=== PATIENT | female | born 1945 | race Caucasian/White ===

== ENCOUNTER → 2019-01-25 | Outpatient (CLI) ==
[2019-01-25 13:54] LABS: ABSOLUTE RETIC # 41 10e9/L (24-90); RETICULOCYTE % 0.87 % (0.50-2.40)
[2019-01-25 14:51] LABS: BASOPHILS % (MANUAL) 1 %; EOSINOPHILS % (MANUAL) 1 %; LYMPHOCYTES % (MANUAL) 32 %; MONOCYTES % (MANUAL) 6 %; NEUTROPHILS % (MANUAL) 54 %; RBC MORPH NORMAL; REACTIVE LYMPHOCYTES 6 %
== END ==
LOC: LABNPT 13:45
PROVIDERS: ATTEND Family Medicine
DX: Z01.89 Encounter for other specified special examinations (principal)
CPT/HCPCS: 85007; 85045

== ENCOUNTER → 2020-02-12 | Outpatient (CLI) | payer MEDICARE ==
--- NOTE | 2020-02-12 09:43 | Diagnostic Imaging Report ---
CT Lung Screening INDICATION:40 pack year smoking history. Current smoker. TECHNIQUE: Noncontrast, low-dose CT imaging performed according to the lung cancer screening protocol. Auto Exposure Controls were utilize during the CT exam to meet ALARA standards for radiation dose reduction. COMPARISON:None. FINDINGS:Calcified granuloma in the right lung base. No suspicious pulmonary nodule or mass. No endobronchial lesions. No pleural effusion or pneumothorax. Prominent mediastinal lymph nodes remain subcentimeter in short axis dimension. Normal heart size. No pericardial effusion. Mild atherosclerotic calcifications in the coronary arteries. The visualized upper abdominal contents are unremarkable. No acute osseous findings. IMPRESSION: 1. No suspicious pulmonary nodule or mass. Recommend follow-up with low-dose screening chest CT in 12 months. 2. Evidence prior granulomatous infection. 3. Mild atherosclerotic ossifications in the coronary arteries. LUNG-RADS CATEGORY:1. MODIFIER:None. Dictated by: Dictated on workstation # [id number]
== END ==
LOC: RAD 09:15
PROVIDERS: ATTEND Family Medicine
DX: I25.10 Atherosclerotic heart disease of native coronary artery without angina pectoris (principal); F17.210 Nicotine dependence, cigarettes, uncomplicated

== ENCOUNTER → 2021-05-04 | Outpatient (CLI) | payer MEDICARE ==
--- NOTE | 2021-05-04 15:42 | Diagnostic Imaging Report ---
EXAMINATION: CT CHEST SCREENING WO. TECHNIQUE: Low-dose unenhanced CT of the chest was performed according to the screening protocol. Coronal MIP and sagittal MPR reformats are created. Automatic exposure controls were utilized to keep dose as low as reasonably achievable. INDICATION: 75 pack year history of smoking. Current smoker. COMPARISON: 02/12/2020. FINDINGS: Pulmonary findings: No nodule or debris within the trachea. No suspicious pulmonary nodule has developed. Scattered right lower lobe calcified pulmonary nodules are unchanged and compatible with old granulomatous infection. Extrapulmonary findings: No axillary or mediastinal lymphadenopathy. Heart is normal in size without pericardial effusion. No pleural effusion. Normal caliber thoracic aorta. Limited assessment of the upper abdomen is unremarkable. No concerning focal osseous lesions. IMPRESSION: No change to indicate clinically active lung cancer. Lung-RADS category: 1 - Negative Recommendations: Continued annual screening with low-dose CT in 12 months. Dictated by: Dictated on workstation # [id number]
== END ==
LOC: RAD 12:45
PROVIDERS: ATTEND Family Medicine
DX: Z12.2 Encounter for screening for malignant neoplasm of respiratory organs (principal); F17.210 Nicotine dependence, cigarettes, uncomplicated
CPT/HCPCS: 71271

== ENCOUNTER → 2022-05-05 | Outpatient (CLI) | payer MEDICARE ==
--- NOTE | 2022-05-05 15:24 | Diagnostic Imaging Report ---
EXAMINATION: CT chest without contrast (lung screening). TECHNIQUE: Multiple contiguous axial images were obtained through the chest without the use of intravenous contrast according to lung cancer screening protocol. All CT scans use one or more of the following dose optimizing techniques: automated exposure control, MA and/or KvP adjustment based on patient size and exam type or iterative reconstruction. HISTORY: 77 pack year history of smoking. COMPARISON: 05/04/2021 FINDINGS: There is no edema or pneumonia. No pleural effusion. No pneumothorax. No suspicious nodules. There is no axillary or supraclavicular lymphadenopathy. There is no mediastinal lymphadenopathy. Heart size is normal. There are mild coronary artery calcifications. No pericardial effusion. Aorta is normal in caliber. Limited views of the upper abdomen are unremarkable. There are no suspicious osseus lesions. IMPRESSION: 1. No suspicious pulmonary nodules. LUNG-RADS CATEGORY: 1 MODIFIER: None. Dictated by: Dictated on workstation # [id number]
== END ==
LOC: RAD 13:56
PROVIDERS: ATTEND Family Medicine
DX: Z12.2 Encounter for screening for malignant neoplasm of respiratory organs (principal); Z87.891 Personal history of nicotine dependence
CPT/HCPCS: 71271